=== PATIENT | male | born 1940 | race Caucasian/White ===

== ENCOUNTER → 2016-09-06 | Outpatient (REF) | payer MEDICARE, BC ==
[~2016-09-06] MED LIST: /SENOSTA PO; /TAMS4CA OR; ACIDCAP PO; ASPI81TA31 OR; ASPI81TA45 OR; ATIV1TAB10 PO; AVOD0.5C OR; AVODART PO; BENA25CA PO; CARBOPLATIN IV; DOCU10ELUD PO; FOLI1TAB86 PO; HCTZ PO; HYDR25TAB PO; METO25TA74 PO; PANTANASE; PROC25SU2 PO; SIMV20TA2 OR; SIMV40TA2 PO; SIMVASTIN PO; SYST1SOL OU; TAMSULOSIN PO; VANC12CA OR; VIT B12; VITA-112 PO; VITAMIN D PO; [UNRECOGNIZED DRUG - CODE] PO; [UNRECOGNIZED DRUG - CODE] SC; [UNRECOGNIZED DRUG - MIXTURE] PO; [UNRECOGNIZED DRUG - OTHER] PO; [UNRECOGNIZED DRUG - OTHER] PO; bacid OR; lomotil OR; lopressor OR
[2016-09-07 12:52] LABS: CARCINOEMBRYONIC ANTIGEN 5.5 NG/ML (<2.5)
== END ==
LOC: M LAB REF 12:45
PROVIDERS: ATTEND Internal Medicine Medical Oncology
DX: C34.90 Malignant neoplasm of unspecified part of unspecified bronchus or lung (principal)

== ENCOUNTER → 2016-09-19 | Outpatient (REF) | payer MEDICARE, BC ==
[2016-09-19 18:56] LABS: ALBUMIN 4.5 GM/DL (3.2-5.2); ALBUMIN/GLOBULIN RATIO 1.36 (1.00-1.93); ALKALINE PHOSPHATASE 90 U/L (45-117); ALT/SGPT 26 U/L (12-78); ANION GAP 6 MEQ/L (8-16); AST/SGOT 19 U/L (15-37); BILIRUBIN,TOTAL 0.8 MG/DL (0.2-1.0); BLOOD UREA NITROGEN 23 MG/DL (7-18); CALCIUM LEVEL 9.8 MG/DL (8.8-10.2); CARBON DIOXIDE LEVEL 31 MEQ/L (21-32); CHLORIDE LEVEL 102 MEQ/L (98-107); CHOLESTEROL LEVEL 221 MG/DL (<200); CREATININE FOR GFR 1.14 MG/DL (0.70-1.30); GLOMERULAR FILTRATION RATE > 60.0 (>42); GLUCOSE, FASTING 98 MG/DL (83-110); SODIUM LEVEL 139 MEQ/L (136-145); TOTAL PROTEIN 7.8 GM/DL (6.4-8.2); TRIGLYCERIDES LEVEL 197 MG/DL (<150)
[2016-09-19 19:11] LABS: FOLATE > 24.0 NG/ML (>5.4); VITAMIN B12 LEVEL 457 PG/ML (247-911)
== END ==
LOC: M SFHCCLAY 10:26
PROVIDERS: ATTEND Family Medicine
DX: D75.89 Other specified diseases of blood and blood-forming organs (principal); N40.1 Benign prostatic hyperplasia with lower urinary tract symptoms; R97.8 Other abnormal tumor markers; I10 Essential (primary) hypertension

== ENCOUNTER → 2016-09-19 | Outpatient (CLI) | payer MEDICARE, BC ==
--- NOTE | 2016-09-19 11:38 | REP ---
CHEST, TWO VIEWS: HISTORY: Lung carcinoma. COMPARISON: 12/27/2015. Linear densities are present in the left lower lobe consistent with scarring. The right lung is clear. The heart is normal in size. The pulmonary vasculature is normal in appearance. Degenerative change is present in the thoracic spine. Surgical clips are present in the left hemithorax. IMPRESSION: Left lower lobe scarring.
== END ==
LOC: M CLY 10:54
PROVIDERS: ATTEND Family Medicine
DX: R06.2 Wheezing (principal); Z79.899 Other long term (current) drug therapy; Z79.82 Long term (current) use of aspirin; Z85.118 Personal history of other malignant neoplasm of bronchus and lung; D75.89 Other specified diseases of blood and blood-forming organs; N40.1 Benign prostatic hyperplasia with lower urinary tract symptoms; R97.8 Other abnormal tumor markers; I10 Essential (primary) hypertension

== ENCOUNTER → 2016-10-31 | Outpatient (CLI) | payer MEDICARE, BC ==
--- NOTE | 2016-10-31 16:38 | REP ---
PET/CT: History: Restaging lung carcinoma. 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 Status post left upper lobectomy and laparoscopic metastasectomy of the solitary left adrenal metastasis. Comparisons: Comparison PET-CT study from 11/03/2015 and 03/10/2015 are reviewed. TECHNIQUE: 71 minutes following the intravenous injection of a 9.8 mCi dose of F-18 FDG, three-dimensional PET scintigraphy is acquired from the skull base to the proximal thighs. Triplanar noncontrast CT scanning is acquired through the same anatomic range for attenuation correction, and image registration with scan parameters optimized to minimize radiation exposure to the patient. PET scintigraphy and CT datasets were fused and displayed on a workstation with multiplanar and projection display capability. PET/CT Findings: The head and neck soft tissues remain unremarkable. There is no abnormal hypermetabolic uptake within the chest. Postoperative changes are seen in the left lung and left adrenal bed as before. No abnormal hypermetabolic uptake is seen within in the abdomen or pelvis. Impression: Negative PET CT study. No PET scintigraphic evidence to suggest recurrence. Postoperative changes. Signed by Abraham Cameron MD 11/01/2016 12:51 P
== END ==
LOC: M PLARAD 08:15
PROVIDERS: ATTEND Internal Medicine Medical Oncology
DX: C34.90 Malignant neoplasm of unspecified part of unspecified bronchus or lung (principal)
CPT/HCPCS: 78815; A9552

== ENCOUNTER → 2017-02-12 | Outpatient (CLI) | payer MEDICARE, BC ==
[~2017-02-12] MED LIST changes: +METO1TAB32 PO; -METO25TA74 PO
--- NOTE | 2017-02-12 15:28 | REP ---
CERVICAL SPINE SERIES: Full cervical spine series is performed. There is no evidence of fracture or dislocation. There is no prevertebral soft tissue swelling. There is moderate diffuse spurring. There is mild disc space narrowing and subchondral sclerosis at C5-6 and C6-7. There is diffuse narrowing, sclerosis, and spurring at the posterior facet joints. Uncovertebral and facet spurring may cause a mild degree of neural foraminal narrowing at C5-6 on the left. IMPRESSION: Diffuse degenerative changes.
== END ==
LOC: M CLY 14:33
PROVIDERS: ATTEND Family Medicine
DX: R51 Headache (principal); R22.1 Localized swelling, mass and lump, neck; M25.78 Osteophyte, vertebrae; M50.022 Cervical disc disorder at C5-C6 level with myelopathy; M50.023 Cervical disc disorder at C6-C7 level with myelopathy
CPT/HCPCS: 72050; 80048; 85027; 85652; 86617; G0463

== ENCOUNTER → 2017-02-12 | Outpatient (REF) | payer MEDICARE, BC ==
[2017-02-13 12:55] LABS: MEAN CORPUSCULAR HEMOGLOBIN 34.5 pg (27.0-33.0); MEAN CORPUSCULAR HGB CONC 34.9 g/dl (32.0-36.5); RED CELL DISTRIBUTION WIDTH 13.2 % (11.5-14.5); WHITE BLOOD COUNT 5.8 K/mm3 (4.0-10.0)
[2017-02-13 13:35] LABS: CALCIUM LEVEL 9.7 MG/DL (8.8-10.2); CREATININE FOR GFR 1.37 MG/DL (0.70-1.30); GLOMERULAR FILTRATION RATE 53.9 (>42); POTASSIUM SERUM 4.2 MEQ/L (3.5-5.1)
[2017-02-15 00:07] LABS: Lyme Disease IgG/IgM Antibodie <0.91 ISR (0.00-0.90); Lyme Disease IgM Ab Quantitati <0.80 index (0.00-0.79)
== END ==
LOC: M SFHCCLAY 14:22
PROVIDERS: ATTEND Family Medicine
DX: R51 Headache (principal); Z20.9 Contact with and (suspected) exposure to unspecified communicable disease; Z85.118 Personal history of other malignant neoplasm of bronchus and lung

== ENCOUNTER → 2017-02-18 | Outpatient (CLI) | payer MEDICARE, BC ==
--- NOTE | 2017-02-18 12:56 | REP ---
MR BRAIN WITHOUT CONTRAST: HISTORY: Lung carcinoma. COMPARISON: 01/23/2012. A mass hypointense on T1 and mixed hypo and hyperintense on T2-weighted images is present in the left cerebellum. This measures 3.8 cm in width. Surrounding edema is present. There is mass effect with partial effacement of the fourth ventricle which is displaced to the right. There is partial effacement of the quadrigeminal plate cistern. Areas of increased signal intensity on T2-weighted images are present in the periventricular and subcortical white matter. This represents small vessel ischemic disease. There is no intraparenchymal hemorrhage or infarct. The ventricular system and cortical sulci are dilated consistent with mild volume loss. There is no extracerebral collection. Mucosal thickening is present in the left ethmoid and maxillary sinuses. IMPRESSION: 1. 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 There is mass effect with partial effacement of the fourth ventricle. There is no hydrocephalus. 2. Small vessel ischemic disease.3. Mild volume loss. Signed by Blayne May MD 02/18/2017 01:37 P
== END ==
LOC: M RAD 09:43
PROVIDERS: ATTEND Family Medicine
DX: R93.0 Abnormal findings on diagnostic imaging of skull and head, not elsewhere classified (principal); R51 Headache; Z85.118 Personal history of other malignant neoplasm of bronchus and lung

== ENCOUNTER → 2017-03-08 | Outpatient (CLI) | payer MEDICARE, BC ==
[~2017-03-08] MED LIST changes: +GASTROGRAFIN SOLUTION 30ML (Q9963) As Ordered ONE; +ISOVUE-370 76% 100ML VIAL (Q9967) As Ordered ONE
--- NOTE | 2017-03-08 15:56 | REP ---
Clinical: Lung cancer follow-up. Technique: Axial contrast enhanced images from the thoracic inlet to the upper abdomen using 100 ml Isovue 370 intravenous contrast material with coronal and sagittal re-formations. Comparison: 06/26/2012. Findings: Postoperative changes at the left hilum and along the posteromedial aspect of the left hemithorax is consistent with prior surgery and remain stable. The bilateral lung sanchez are otherwise well aerated and essentially clear. No pulmonary parenchymal consolidation, significant nodule or mass lesion is identified. No pleural effusion or pneumothorax. Trace scattered subpleural scarring at the bases noted. The tracheobronchial tree is patent. Mediastinum demonstrates normal vasculature and heart/pericardium. No adenopathy. Surrounding musculoskeletal structures without focal osseous abnormality. Limited evaluation of the upper abdomen suggests chronic perinephric stranding and mild fatty infiltration of the liver. Impression: Postoperative changes involving the left hemithorax with minimal age-related basilar scarring. No acute mediastinal or pleuroparenchymal process is appreciated. Signed by Waylon Castellanos MD 03/08/2017 02:01 P
--- NOTE | 2017-03-08 15:57 | REP ---
CT of the abdomen and pelvis without and with IV contrast. There is bowel contrast on both phases of the study. Comparisons for 2010. The study is performed contiguous with the chest CT this same date. There is a mm cyst in the medial segment of the hepatic left lobe. This measured 6 mm previously. The previous bilateral pleural effusions are no longer present. The previous ascites is no longer present. The hepatic parenchyma is otherwise homogeneous. The gallbladder, pancreas and spleen are unremarkable. The right adrenal is unremarkable. There is a left adrenalectomy. The kidneys are unremarkable. There is a small left renal cortical cyst posteriorly. This is unchanged. The abdominal aorta is unremarkable. There is no retroperitoneal or mesenteric adenopathy. The bowel is unremarkable. The colitis identified on the previous study has resolved. Pelvis: The prostate is enlarged. There is a fat-containing left ribs were there are small bilateral fat containing inguinal hernias. These are unchanged. There is no pelvic adenopathy or ascites. The bladder is unremarkable. There are no lytic, blastic or destructive skeletal changes. Impression: Small hepatic cyst as described. Left adrenalectomy. Enlarged prostate. No adenopathy or ascites. No pleural effusions. The previous colitis has resolved. Signed by Martin Montana MD 03/08/2017 02:24 P
== END ==
LOC: M RAD 12:01
PROVIDERS: ATTEND Specialist
DX: C34.12 Malignant neoplasm of upper lobe, left bronchus or lung (principal)
CPT/HCPCS: 71260; 74178; Q9963; Q9967